=== PATIENT | female | born 1950 | race Caucasian/White ===

== ENCOUNTER 2021-09-06 11:18 | Emergency (ER) | payer MEDICARE, OTHER ==
[2021-09-06 13:08] LABS: BASOPHIL 0.7 % (0-2); EOSINOPHIL 2.1 % (0-7); HCT 43.6 % (37.0-47.0); HGB 14.2 g/dl (12.5-16.0); LYMPHOCYTE 24.3 % (15-48); MCH 30.7 pg (25.0-31.0); MCHC 32.6 g/dL (32.0-36.0); MCV 94.4 fL (78.0-100.0); MPV 10.1 fL (6.0-9.5); NEUTROPHIL 66.6 % (41-80); NRBC 0; PLT 182 K/uL (150-400); RBC 4.62 M/uL (4.20-5.40); RDW 12.8 % (11.5-14.0); WBC 7.6 K/uL (4.0-10.5)
[2021-09-06 13:43] LABS: BUN/CREAT RATIO (CALC) 11.9 RATIO; CREATININE 0.84 mg/dL (0.51-0.95)
== END 2021-09-06 16:03 | disposition home or self-care (01) ==
LOC: FER 11:18
PROVIDERS: Nurse Practitioner Family
DX: I80.251 Phlebitis and thrombophlebitis of right calf muscular vein (principal)
CPT/HCPCS: 36415; 80048; 85025; 93971

== ENCOUNTER 2022-05-29 09:59 | Emergency (ER) | payer MEDICARE, OTHER ==
[2022-05-29] MEDS ORDERED: PERCOCET 5-3251 EACH PO (11:04)
[2022-05-29] MEDS ORDERED: ONDANSETRON ODT4 MG PO (11:04)
== END 2022-05-29 11:53 | disposition home or self-care (01) ==
LOC: FER 09:59
DX: S52.501A Unspecified fracture of the lower end of right radius, initial encounter for closed fracture (principal); Z87.891 Personal history of nicotine dependence; W19.XXXA Unspecified fall, initial encounter; Y93.41 Activity, dancing; Y92.9 Unspecified place or not applicable
CPT/HCPCS: 73110